=== PATIENT | male | born 1970 | race Caucasian/White ===

== ENCOUNTER 2024-06-09 22:30 | Emergency (ER) | payer OTHER ==
[~2024-06-09] VITALS: Ht 172.7 cm; Wt 98.9 kg
[2024-06-09 23:08] LABS: BASOPHILS 0.8 % (0-2); EOSINOPHILS 3.2 % (0-6); HEMATOCRIT 42.2 % (35.0-50.0); HEMOGLOBIN 14.7 g/dL (12.0-18.0); LYMPHOCYTES 38.7 % (24-44); MCH 31.7 (27-36); MCHC 34.8 g/dl (30-36); MONOCYTES 7.8 % (0-12); NEUTROPHILS 49.5 % (39-80); PLATELET COUNT 276 K/uL (140-440); RBC 4.64 M/ul (4.3-5.7); RDW 13.7 (10.5-15.0)
[2024-06-09 23:22] LABS: ALBUMIN 3.3 g/dL (3.4-5.0); ALBUMIN/GLOBULIN RATIO 0.94 (1.1-2.4); ANION GAP 12.2 (7-21); BILIRUBIN, TOTAL 0.2 ng/dL (0.2-1.0); BUN/CREATININE RATIO 13.74 (6.0-28.6); CREATININE, SERUM 1.31 mg/dL (0.70-1.30); POTASSIUM 4.2 mmol/L (3.5-5.1); PROTEIN, TOTAL 6.8 g/dL (6.4-8.2)
[2024-06-09 23:40] VITALS: BP 143/96
--- NOTE | 2024-06-11 21:14 | EKG ---
[facility] [address] [facility] [facility] [place] [address] Signed Normal sinus rhythm Minimal voltage criteria for LVH, may be normal variant ( [place] product ) Abnormal QRS-T angle, consider primary T wave abnormality Prolonged QT Abnormal ECG No previous ECGs available Confirmed by Nathaly Maddox DO ([id number]) on 06/11/2024 9:14:24 PM Electronically Signed By: NATHALY MADDOX DO 06/11/242113 PATIENT NAME: RAMIREZ MISTRY Electrocardiogram DATE OF : 70 PHYSICIAN: NATHALY MADDOX DO REPORT #: [id number] REPORT IS CONFIDENTIAL AND NOT TO BE RELEASED WITHOUT AUTHORIZATION
== END 2024-06-09 23:40 | disposition home or self-care (01) ==
LOC: ED 22:30
PROVIDERS: Internal Medicine
DX: Z02.89 Encounter for other administrative examinations (principal); I11.0 Hypertensive heart disease with heart failure; I50.9 Heart failure, unspecified; R07.9 Chest pain, unspecified
CPT/HCPCS: 36415; 71045; 80053; 84484; 85025; 93005; 93010; 99285-25

== ENCOUNTER 2024-06-11 11:43 | Emergency (ER) | payer OTHER ==
[~2024-06-11] VITALS: Ht 172.7 cm; Wt 89.8 kg
--- OUTSIDE RECORDS SUMMARY | 2024-06-11 11:45 | XMS ---
PreManage Notification: RAMIREZ MISTRY [employer] Events No recent Security Events currently on file CRITERIA MET - [facility] - 2 Visits in 30 Days CARE PROVIDERS There are no care providers on record at this time. Raysa has no Care Guidelines for this patient. Kierra VISIT COUNT (12 MO.) 2 [facility]. TOTAL 2 NOTE: Visits indicate total known visits. ED/C VISIT TRACKING (12 MO.) 06/11/2024 11:43 [facility] [place] TYPE: Emergency COMPLAINT: - CHEST PAIN 06/09/2024 22:31 [facility] [place] TYPE: Emergency COMPLAINT: - MEDICAL CLEARANCE DIAGNOSES: - Chest pain, unspecified - Encounter for other administrative examinations - Heart failure, unspecified - Hypertensive heart disease with heart failure INPATIENT VISIT TRACKING (12 MO.) No inpatient visits to display in this time frame [email or web address]
[2024-06-11 11:59] LABS: BASOPHILS 0.6 % (0-2); EOSINOPHILS 1.2 % (0-6); HEMATOCRIT 47.6 % (35.0-50.0); HEMOGLOBIN 16.5 g/dL (12.0-18.0); LYMPHOCYTES 29.4 % (24-44); MCH 31.2 (27-36); MCHC 34.7 g/dl (30-36); MCV 89.9 fl (81-99); MONOCYTES 6.8 % (0-12); PLATELET COUNT 314 K/uL (140-440); RBC 5.29 M/ul (4.3-5.7); RDW 13.6 (10.5-15.0)
[2024-06-11 12:21] LABS: ALBUMIN 4.2 g/dL (3.4-5.0); ALBUMIN/GLOBULIN RATIO 1.11 (1.1-2.4); ANION GAP 18.4 (7-21); BILIRUBIN, TOTAL 0.5 ng/dL (0.2-1.0); BUN/CREATININE RATIO 10.93 (6.0-28.6); CALCIUM 10.2 mg/dL (8.5-10.1); CREATININE, SERUM 1.28 mg/dL (0.70-1.30); POTASSIUM 4.4 mmol/L (3.5-5.1)
[2024-06-11 15:47] VITALS: BP 162/104
--- NOTE | 2024-06-11 21:16 | EKG ---
[facility] [address] [facility] [place] [address] Signed Normal sinus rhythm Minimal voltage criteria for LVH, may be normal variant ( [place] product ) T wave abnormality, consider anterolateral ischemia Prolonged QT Abnormal ECG When compared with ECG of 09-JUN-2024 22:43, (Unconfirmed) T wave inversion more evident in Anterolateral leads Confirmed by Nathaly Maddox DO ([id number]) on 06/11/2024 9:15:56 PM Electronically Signed By: NATHALY MADDOX DO 06/11/242115 PATIENT NAME: RAMIREZ MISTRY Electrocardiogram DATE OF : 70 PHYSICIAN: NATHALY MADDOX DO REPORT #: [id number] REPORT IS CONFIDENTIAL AND NOT TO BE RELEASED WITHOUT AUTHORIZATION
== END 2024-06-11 15:48 | disposition home or self-care (01) ==
LOC: ED 11:43
PROVIDERS: Internal Medicine
DX: R07.89 Other chest pain (principal); I11.0 Hypertensive heart disease with heart failure; I50.9 Heart failure, unspecified
CPT/HCPCS: 36415; 71045; 80053; 83735; 83880; 84484; 85025; 93005; 93010; 99285-25